=== PATIENT | female | born 1925 | race Caucasian/White ===

== ENCOUNTER → 2016-11-21 | Outpatient (CLI) | payer MEDICARE, OTHER ==
[2016-05-05 13:17] VITALS: BP 140/70
[~2016-11-21] MED LIST: AMLODIPINE10 MG PO; ASTEPRO137 MCG/Ac NAS; CEFDINIR300 MG PO; CHILDREN'S ASPI81 M1 PO; COLESTID 1GM1 G PO; COZAAR100 MG PO; CRESTOR5 MG PO; FISH OIL1 IU PO; FLAGYL500 M1 PO; LASIX 20MG TABL20 MG PO; LEVAQUIN 5500 MG/TA1 PO; METFORMIN500 MG PO; METOPROLOL SUCC50 M1; PRILOSEC 20MG20 MG PO; SINGULAIR10 MG PO; ZYRTEC10 MG PO
== END ==
LOC: LAB 11:39
DX: I10 Essential (primary) hypertension (principal); E11.9 Type 2 diabetes mellitus without complications; M85.80 Other specified disorders of bone density and structure, unspecified site; E78.2 Mixed hyperlipidemia